=== PATIENT | female | born 1980 | race Caucasian/White ===

== ENCOUNTER → 2017-06-20 | Outpatient (CLI) | payer OTHER ==
[~2017-06-20] MED LIST: ATV5 PO; GABA-113; GADAVIST IV PRN; IBUP600T44; LAMO100T16; LRT5 PO; QUET1TAB30; SULF800T23 PO
--- NOTE | 2017-06-20 13:18 | DIAGNOSTIC IMAGING REPORT ---
MRI OF THE BRAIN COMBO CLINICAL HISTORY: Seizure disorder. Headache. Dizziness. Blurry vision. Memory loss. COMPARISON STUDY: MRI of the brain dated 04/23/2006. TECHNIQUE: MRI of the brain was performed utilizing various T1 and T2-weighted sequences in the axial, sagittal, and coronal planes. Contrast-enhanced sequences were acquired following the administration of 3 cc of Gadavist. The examination is performed using the seizure protocol. FINDINGS: Brain parenchyma: There is a subcentimeter focus of T2 signal in amount identified within the subcortical white matter of the right frontal lobe. This is best on coronal FLAIR image #9. This is of doubtful significance as an isolated finding and likely related to a remote insult. The brain parenchyma is otherwise normal in appearance. There is no hemorrhage or mass effect. There is no restricted diffusion to suggest acute ischemia. No enhancing mass lesion is identified on the postcontrast images. Cruz-white matter differentiation is preserved. No extra-axial fluid collection is seen. The cerebellar tonsils are normal in configuration. The hippocampi are normal and symmetric. Ventricles, sulci, and cisterns: Normal in configuration. Pituitary and sella: Unremarkable. Intracranial vasculature: Normal flow voids are maintained at the skull base. Orbits: The bony orbits are grossly intact. Orbital contents are normal in appearance. Sinuses and mastoids: Trace mucosal thickening seen within the right maxillary antrum and the right ethmoid sinuses. The remaining paranasal sinuses are clear. The mastoid air cells are well pneumatized. Calvarium: Unremarkable. Cervical cord: Partially visualized cervical spinal cord is normal in morphology and signal intensity. IMPRESSION: No acute intracranial abnormality. Electronically signed by: Gary Cortes M.D. 06/20/2017 1:17 PM Dictated Date/Time: 06/20/2017 1:12 PM
== END | disposition home or self-care (01) ==
LOC: C.MRI 11:57
PROVIDERS: ATTEND Psychiatry & Neurology Neurology
DX: G40.909 Epilepsy, unspecified, not intractable, without status epilepticus (principal); R29.818 Other symptoms and signs involving the nervous system